=== PATIENT | male | born 1950 | race Caucasian/White ===

== ENCOUNTER 2016-09-12 23:03 | Emergency (ER) | payer MEDICARE, OTHER ==
[~2016-09-12] VITALS: Ht 180.3 cm; Wt 53.3 kg
[2016-09-12] MEDS ORDERED: DILTIAZEM 5 MG/ML, 5ML ONE (23:38)
[2016-09-12] MEDS ORDERED: DILTIAZEM 125 MG in DEXTROSE 5% 100 ML IV SCH (23:39)
[2016-09-13] MEDS ORDERED: DILTIAZEM 5 MG/ML, 5ML IV ONE
[2016-09-13 00:43] LABS: BLOOD UREA NITROGEN 16 mg/dL (7-18)
[2016-09-13 00:49] LABS: IS PT STATUS REG ER OR PRE ER? YES
[2016-09-13 02:10] VITALS: BP 139/54
== END 2016-09-13 02:12 | disposition home or self-care (01) ==
LOC: ED 23:59
DX: I48.0 Paroxysmal atrial fibrillation (principal)
CPT/HCPCS: 36415; 71010; 80048; 82040; 84484; 85025; 93005; 96365; 96375; 99285

== ENCOUNTER → 2016-10-14 | Outpatient (CLI) | payer MEDICARE | END | disposition home or self-care (01) | LOC: CFH 14:27 | PROVIDERS: ATTEND Internal Medicine Cardiovascular Disease | DX: I08.1 Rheumatic disorders of both mitral and tricuspid valves (principal); I48.0 Paroxysmal atrial fibrillation; J84.10 Pulmonary fibrosis, unspecified; R03.0 Elevated blood-pressure reading, without diagnosis of hypertension | CPT/HCPCS: 75571; 93306 ==

== ENCOUNTER → 2016-11-25 | Outpatient (CLI) | payer MEDICARE ==
[~2016-11-25] MED LIST: REGADENOSON 0.4 MG/5 ML SYRINGE ONE
== END | disposition home or self-care (01) ==
LOC: CFH 12:36
PROVIDERS: ATTEND Physician Assistant Medical
DX: I25.10 Atherosclerotic heart disease of native coronary artery without angina pectoris (principal)
CPT/HCPCS: 78452; 93017; A9502; J2785

== ENCOUNTER → 2016-12-01 | Outpatient (CLI) | payer MEDICARE | END | disposition home or self-care (01) | LOC: PETCFH 09:11 | PROVIDERS: ATTEND Urology | DX: C61 Malignant neoplasm of prostate (principal) | CPT/HCPCS: 78306; A9503 ==

== ENCOUNTER → 2016-12-01 | Outpatient (CLI) | payer MEDICARE ==
[~2016-12-01] MED LIST changes: +OMNIPAQUE 350 MG/ML, 100ML BOTTLE ONE; -REGADENOSON 0.4 MG/5 ML SYRINGE ONE
== END | disposition home or self-care (01) ==
LOC: CFH 09:12
PROVIDERS: ATTEND Urology
DX: C61 Malignant neoplasm of prostate (principal); M51.86 Other intervertebral disc disorders, lumbar region; M16.12 Unilateral primary osteoarthritis, left hip
CPT/HCPCS: 74177; 82565; Q9967

== ENCOUNTER 2017-01-22 23:39 | Emergency (ER) | payer MEDICARE ==
[~2017-01-22] VITALS: Ht 180.3 cm; Wt 92.8 kg
[~2017-01-22 23:39] MED LIST changes: +ATOR40TA78 PO; +GLUC1TAB27 PO; +HYDR-3240 PO; +MULT-257 PO; -OMNIPAQUE 350 MG/ML, 100ML BOTTLE ONE; +UBID100C24 PO
[2017-01-23 01:05] VITALS: BP 149/85
== END 2017-01-23 01:07 | disposition home or self-care (01) ==
LOC: ED 23:59
DX: T83.021A Displacement of indwelling urethral catheter, initial encounter (principal); Z88.0 Allergy status to penicillin
CPT/HCPCS: 99284

== ENCOUNTER → 2017-01-28 | Outpatient (CLI) | payer MEDICARE | END | disposition home or self-care (01) | LOC: RAD 12:34 | PROVIDERS: ATTEND Urology | DX: C61 Malignant neoplasm of prostate (principal); N32.89 Other specified disorders of bladder | CPT/HCPCS: 74430 ==